=== PATIENT | male | born 1965 | race Caucasian/White ===

== ENCOUNTER → 2018-05-21 | Outpatient (CLI) | payer OTHER | END | disposition home or self-care (01) | LOC: US 14:28 | DX: R60.0 Localized edema (principal) | CPT/HCPCS: 93970 ==

== ENCOUNTER → 2018-05-29 | Outpatient (CLI) | payer OTHER | END | disposition home or self-care (01) | LOC: US 12:22 | DX: I87.2 Venous insufficiency (chronic) (peripheral) (principal) | CPT/HCPCS: 93970 ==

== ENCOUNTER 2021-02-07 02:16 | Emergency (ER) | payer BC, OTHER ==
[~2021-02-07] VITALS: Ht 193 cm; Wt 136.6 kg
[2021-02-07 02:56] LABS: BASO # 0.1 x10^3/uL (0.0-0.2); BASO % 1 % (0-3); EOS # 0.2 x10^3/uL (0.0-0.7); EOS % 2 % (0-3); HEMATOCRIT 45.9 % (39.0-53.0); HEMOGLOBIN 15.9 g/dL (13.0-17.5); LYMPH # 1.9 x10^3/uL (1.0-4.8); LYMPH % 17 % (24-48); MEAN CORPUSCULAR HEMOGLOBIN 31 pg (25-35); MEAN CORPUSCULAR HGB CONC 35 g/dL (31-37); MEAN CORPUSCULAR VOLUME 91 fL (79-100); MONO # 1.3 x10^3/uL (0.0-1.1); MONO % 12 % (0-9); NEUT # 7.7 x10^3/uL (1.8-7.7); NEUT % 69 % (31-73); PLATELET COUNT 205 x10^3/uL (140-400); RED BLOOD COUNT 5.05 x10^6/uL (4.30-5.70); RED CELL DISTRIBUTION WIDTH 13.5 % (11.5-14.5); WHITE BLOOD COUNT 11.1 x10^3/uL (4.0-11.0)
--- NOTE | 2021-02-07 02:57 | PHYS DOC ---
Past Medical History Past Medical History: No Pertinent History Smoking Status: Never Smoker Alcohol Use: None Drug Use: None General Adult EDM: Chief Complaint: CHEST PAIN HPI: HPI: Patient is a 55 year old male with no past medical history presents the ED with a chief complaint of chest pain onset was yesterday afternoon, character is described as tightening, duration was intermittent, radiation is none, location is substernal. Patient states that the chest pain initially lasted for few hours then went away, then reoccurred at midnight tonight woke him up from sleep. So stated symptoms are chest pain with deep inspiration that is worse when laying flat. Patient denies nausea, vomiting, diarrhea, cough, abdominal pain, sweats, injury to the chest wall. Patient denies any cardiac history in the family denies any history of blood clots, recent travel, calf pain, lower extremity swelling. Review of Systems: Review of Systems: Constitutional: Denies fever or chills Eyes: Denies redness or eye pain HENT: Denies nasal congestion or sore throat Respiratory: Reports pain with inspiration. Denies cough Cardiovascular: Reports chest pain. Denies palpitations GI: Denies abdominal pain, nausea, or vomiting : Denies dysuria or hematuria Musculoskeletal: Denies back pain or joint pain. Denies calf pain or leg swelling. Integument: Denies rash or skin lesions Neurologic: Denies headache, focal weakness or sensory changes Complete systems were reviewed and found to be within normal limits, except as documented in this note. Heart Score: C/O Chest Pain: Yes HEART Score for Chest Pain: HEART Score for Chest Pain Response (Comments) Value History Slighlty/Non-Suspicious 0 ECG Normal 0 Age >45 - < 65 1 Risk Factors 1 or 2 Risk Factors 1 Troponin < Normal Limit 0 Total 2 Risk Factors: Risk Factors: DM, Current or recent (<one month) smoker, HTN, HLP, family history of CAD, obesity. Risk Scores: Score 0 - 3: 2.5% MACE over next 6 weeks - Discharge Home Score 4 - 6: 20.3% MACE over next 6 weeks - Admit for Clinical Observation Score 7 - 10: 72.7% MACE over next 6 weeks - Early Invasive Strategies Current Medications: Current Medications Medications (Trade) Dose Ordered Sig/[facility] Start Time Stop Time Status Last Admin Dose Admin Aspirin (Meseret Aspirin) 325 mg 1X ONCE 02/07/21 02:45 4/13/21 02:46 UNV Sodium Chloride 1,000 ml @ 1,000 mls/hr Q1H 02/07/21 02:45 02/07/21 03:44 UNV Allergies: Allergies: Allergies Coded Allergies Type Severity Reaction Last Updated Verified No Known Drug Allergies 02/07/21 No Physical Exam: PE: Constitutional: Well developed, well nourished, no acute distress, non-toxic appearance HENT: Normocephalic, atraumatic Eyes: PERRL, EOMI, conjunctiva normal, no discharge Neck: Normal range of motion, no tenderness, supple Lungs & Thorax: No respiratory distress, equal chest rise and fall. Reproducible tenderness to palpation of the chest wall no bony deformities. No overlying skin changes. Abdomen: Soft, no tenderness Skin: Warm, dry, no erythema, no rash Back: No tenderness, no CVA tenderness Extremities: No tenderness, ROM intact, no edema Neurologic: Alert and oriented X 3, normal motor function, normal sensory function, no focal deficits noted Psychologic: Affect normal, judgment normal EKG: EKG: @0224, 90bpm, No ST elevation, wandering baseline, [place] interval 140ms, QT 354ms Radiology/Procedures: Radiology/Procedures: PROCEDURE: CT ANGIOGRAPHY CHEST CTA Chest with contrast: Clinical History: Reason: Chest pain, elevated D-dimer / Spl. Instructions: / History: Shortness of breath. Axial helical images of the chest were obtained after the administration of 75 cc of IV Omni 350 and timed appropriately for a pulmonary arterial study. Conventional axial reconstruction was performed in addition to coronal, sagittal and bilateral oblique MIP (maximum intensity projection). This study was ordered to detect possible pulmonary embolism. FINDINGS: There are no filling defects to suggest pulmonary embolism. There is elevation right hemidiaphragm. There is linear opacities in the right lung base. There is multiple stones in the gallbladder however this no wall thickening or surrounding inflammation. The lungs and pleural margins are clear. There is no mediastinal or hilar lymphadenopathy. The ascending thoracic aorta is mildly dilated to 3.9 cm.. The left vertebral artery arises from the aortic arch, normal variant. There is bilateral gynecomastia. Impression: 1. No evidence of pulmonary embolism. 2. Elevation of the right hemidiaphragm and right basilar discoid atelectasis. As could be due to paralysis the right hemidiaphragm but is of uncertain chronicity. 3. Dilated ascending thoracic aorta. 4. Cholelithiasis without acute cholecystitis. End impression PQRS Compliance Statement: One or more of the following individualized dose reduction techniques were utilized for this examination: 1. Automated exposure control 2. Adjustment of the mA and/or kV according to patient size 3. Use of iterative reconstruction technique Electronically signed by: Mesfin Morton III, MD (02/07/2021 4:13 AM) [facility] Course & Med Decision Making: Course & Med Decision Making Pertinent Labs and Imaging studies reviewed. (See chart for details) Patient is a 55-year-old male with no past medical history presents to ED with chest pain started yesterday. Pain is worse with deep aspiration worse when lying flat. Patient denies any personal or familial cardiac history or history of blood clots. Denies recent travel, lower extremity pain or edema. Will work-up for ACS. Due to age patient does not meet PERC, will order D-dimer to further assess for PE. 0340: D-dimer came back elevated 0.[address] angio chest for further PE evaluation. Counseled patient and family regarding this who expressed understanding and were agreeable with the plan. Heart score is 2. CT angio negative for pulmonary embolism. Likely etiology is pleurisy. Will treat symptomatically with NSAIDs and steroids. Will give dose of dexamethasone here in the ED. Counseled patient on lab and imaging results and treatment plan. Patient expressed understanding and was agreeable with the plan. Patient stable for discharge with outpatient follow-up with PCP. Discussed findings and plan with patient, who acknowledges understanding and agreement. Tyree Disclaimer: Tyree Disclaimer: This electronic medical record was generated, in whole or in part, using a voice recognition dictation system. Departure Departure Impression: Primary Impression: Chest pain Qualified Codes: R07.9 - Chest pain, unspecified Disposition: HOME / SELF CARE / HOMELESS Condition: STABLE Referrals: FRANCISCO JAVIER MONIQUE MD (PCP) ROGER FARAH MD Patient Instructions: Chest Pain (Nonspecific), [id number], Chest Wall Pain, [id number], Pleurisy, [id number] Additional Instructions: Take over the counter Ibuprofen or Naproxen for pain or discomfort. May also take Tylenol between doses of Ibuprofen/Naproxen. Scripts Hydrocodone/Acetaminophen (Hydrocodone-Acetamin 5-325 mg) 1 Each Tablet 0.5-1 TAB PO Q6HRS PRN for PAIN, #10 TAB Prov: FERMÍN RONDON DO 02/07/21 FERMÍN RONDON DO Feb 07, 2021 02:57
[2021-02-07 03:06] LABS: CALCIUM 8.8 mg/dL (8.5-10.1); CREATININE 1.3 mg/dL (0.7-1.3); GFR 57.3; POTASSIUM 4.1 mmol/L (3.5-5.1)
[2021-02-07 03:12] LABS: ALBUMIN 3.7 g/dL (3.4-5.0); ALBUMIN/GLOBULIN RATIO 1.1 (1.0-1.7); MAGNESIUM 2.3 mg/dL (1.8-2.4); TOTAL BILIRUBIN 0.5 mg/dL (0.2-1.0); TOTAL PROTEIN 7.2 g/dL (6.4-8.2)
--- NOTE | 2021-02-07 03:14 | EKG ---
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
[2021-02-07] MEDS: IV NORMAL SALINE 1000ML BAG 1,000 ML IV SCH (03:15)
[2021-02-07] MEDS: ASPIRIN 325 MG TABLET PO ONE (03:15)
[2021-02-07] MEDS ORDERED: CONTRAST GIVEN. MC PRN (04:00)
[2021-02-07] MEDS: IOHEXOL 350 MG/ML 100 ML VIAL. IV ONE (04:05)
--- NOTE | 2021-02-07 04:15 | RAD ---
CTA Chest with contrast: Clinical History: Reason: Chest pain, elevated D-dimer / Spl. Instructions: / History: Shortness of breath. Axial helical images of the chest were obtained after the administration of 75 cc of IV Omni 350 and timed appropriately for a pulmonary arterial study. Conventional axial reconstruction was performed in addition to coronal, sagittal and bilateral oblique MIP (maximum intensity projection). This stud y was ordered to detect possible pulmonary embolism. FINDINGS: There are no filling defects to suggest pulmonary embolism. There is elevation right hemidiaphragm. There is linear opacities in the right lung base. There is multiple stones in the gallbladder however this no wall thickening or surrounding inflammati on. The lungs and pleural margins are clear. There is no mediastinal or hilar lymphadenopathy. The ascending thoracic aorta is mildly dilated to 3.9 cm.. The left vertebral artery arises from the aortic arch, normal variant. There is bilateral gynecomastia. Impression: 1. No evidence of pulmonary embolism. 2. Elevation of the right hemidiaphragm and right basilar discoid atelectasis. As could be due to pa ralysis the right hemidiaphragm but is of uncertain chronicity. 3. Dilated ascending thoracic aorta. 4. Cholelithiasis without acute cholecystitis. End impression PQRS Compliance Statement: One or more of the following individualized dose reduction techniques were utilized for this examinat ion: 1. Automated exposure control 2. Adjustment of the mA and/or kV according to patient size 3. Use of iterative reconstruction technique Electronically signed by: Mesfin Morton III, MD (02/07/2021 4:13 AM) [facility]
[2021-02-07 04:23] VITALS: BP 155/79
[2021-02-07] MEDS: DEXAMETHASONE 4 MG TABLET PO ONE (04:30)
[2021-02-07] MEDS ORDERED: HYDR-2759 PO (04:30)
[2021-02-07] MEDS: HYDROcodone/APAP 5/325MG 1 TAB TABLET PO ONE (04:41)
== END 2021-02-07 04:42 | disposition home or self-care (01) ==
LOC: ER 02:16
DX: R07.89 Other chest pain (principal); K80.20 Calculus of gallbladder without cholecystitis without obstruction
CPT/HCPCS: 36415; 71275; 80053; 83690; 83735; 83880; 84484; 85025; 85379; 93005; 96360; 99285; J7030; Q9967